=== PATIENT | male | born 1975 | race Caucasian/White ===

== ENCOUNTER 2024-04-19 08:00 | Inpatient (IN) | payer OTHER ==
[2024-05-26 16:42] VITALS: BMI 20.8
[2024-05-31] MEDS ORDERED: LIDOCAINE 1%/EPI 1:100000 (20 ML MULTI DOSE VIAL) ONE (06:57)
[2024-05-31] MEDS ORDERED: MIDAZOLAM HCL 2 MG/2 ML SINGLE DOSE VIAL ONE (07:03)
[2024-05-31] MEDS ORDERED: ROCURONIUM BROMIDE 50 MG/5 ML SYRINGE ONE ×2 (07:03→09:37)
[2024-05-31] MEDS ORDERED: PROPOFOL 20 ML ONE (07:03)
[2024-05-31] MEDS: ceFAZolin SODIUM 1 GM VIAL IVPB ONE ×3 (07:33→10:42)
[2024-05-31] MEDS: LIDOCAINE 1%/EPI 1:100000 (20 ML MULTI DOSE VIAL) IJ ONE ×3 (07:33→10:43)
[2024-05-31] MEDS: VANCOMYCIN 1 GM in D5W (PRE-DOCKED) 1,000 MG/250 ML (RESTRICTED TO ID ONLY IVPB ONE ×2 (07:33→08:24)
[2024-05-31] MEDS ORDERED: HYDROmorphone HCl 2 MG/ML VIAL ONE (08:31)
[2024-05-31] MEDS: THROMBIN (BOVINE) 5,000 UNIT VIAL TP ONE (08:45)
[2024-05-31] MEDS: GENTAMICIN SO4 80 MG/2 ML VIAL IVPB ONE (08:45)
[2024-05-31] MEDS: HYDROGEN PEROXIDE 473 ML PO ONE (08:46)
[2024-05-31] MEDS ORDERED: GLYCOPYRROLATE 0.2 MG/1 ML VIAL ONE (09:05)
[2024-05-31] MEDS ORDERED: VANCOMYCIN 1,000 MG VIAL (RESTRICTED TO ID ONLY) ONE (09:05)
[2024-05-31] MEDS ORDERED: ceFAZolin SODIUM 1 GM VIAL ONE (09:05)
[2024-05-31] MEDS ORDERED: TRANEXAMIC ACID 1000 MG/10 ML VIAL ONE (09:05)
[2024-05-31] MEDS ORDERED: KETOROLAC TROMETHAMINE 30 MG/1 ML VIAL ONE (09:05)
[2024-05-31] MEDS ORDERED: DEXAMETHASONE SOD PHOSPHATE 4 MG/1 ML VIAL ONE (09:05)
[2024-05-31] MEDS ORDERED: NEOSTIGMINE METHYLSULFATE 0.5 MG/1 ML - 10 ML MDV ONE (09:05)
[2024-05-31] MEDS ORDERED: ONDANSETRON 4 MG/2 ML VIAL ONE (09:05)
[2024-05-31] MEDS ORDERED: DEXMEDETOMIDINE HCL 200 MCG/2 ML IVPB ONE (09:16)
[2024-05-31] MEDS ORDERED: THROMBIN (BOVINE) 20,000 UNIT VIAL TP ONE (09:53)
[2024-05-31] MEDS ORDERED: BACITRACIN ZINC 15 GM TUBE TOPICAL OINTMENT ONE ×2 (10:12)
[2024-05-31] MEDS: BUPIVACAINE HCL/PF 0.5% (5MG/ML) 10 ML VIAL IJ ONE (12:30)
[2024-05-31] MEDS: BUPIVACAINE LIPOSOME/PF (EXPAREL) 266 MG/20 ML VIAL NR ONE (12:30)
[2024-05-31] MEDS ORDERED: oxyCODONE HCL 5 MG TABLET PO PRN ×2 (12:55→19:48)
[2024-05-31] MEDS ORDERED: diphenhydrAMINE HCL 25 MG CAPSULE (FP) PO PRN (12:55)
[2024-05-31] MEDS ORDERED: ONDANSETRON 4 MG/2 ML VIAL IVPUSH PRN (12:59)
[2024-05-31] MEDS: ACETAMINOPHEN 1000 MG/100 ML BAG IVPB ONE (13:30)
[2024-05-31] MEDS: LACTATED RINGERS SOLUTION 1,000 ML IV SCH (15:15)
[2024-05-31] MEDS: HEPARIN NA (PORCINE) 5,000 UNITS/ML 1ML VIAL SQ SCH ×2 (16:16→19:13)
[2024-05-31] MEDS: LACTATED RINGERS SOLUTION 1,000 ML/1,000 ML INFUS.BAG IV SCH (16:16)
[2024-05-31] MEDS: DOCUSATE SODIUM 100 MG CAPSULE (FP) PO SCH (16:16)
[2024-05-31] MEDS: CEFAZOLIN 1 GM/D5W 1 GM/50 ML BAG IVPB SCH (19:02)
[2024-05-31] MEDS: CEFAZOLIN 1 GM in DEXTROSE 5%-WATER - 50 ML IVPB SCH (19:12)
[2024-05-31] MEDS: morphine SULFATE 4 MG/ML VIAL IVPUSH PRN (19:59)
[2024-05-31] MEDS: oxyCODONE HCL 5 MG TABLET PO PRN (22:14)
[2024-05-31] MEDS: ONDANSETRON 4 MG/2 ML VIAL IVPUSH PRN (23:13)
[2024-05-31] MEDS: LORazepam 2 MG/ML SDV VIAL IVPUSH ONE (23:25)
[2024-06-01 08:28] LABS: POTASSIUM 4.1 mmol/L (3.5-5.1)
[2024-06-01 08:34] LABS: CALCIUM 8.8 mg/dL (8.5-10.1)
[2024-06-01 08:37] LABS: CREATININE 1.2 mg/dL (0.55-1.3)
[2024-06-01 08:41] LABS: HEMATOCRIT 39.5 % (35.4-49); HEMOGLOBIN 13.1 GM/dL (11.7-16.9); MCH 29.6 pg (25.7-33.7); MCHC 33.1 g/dl (32.0-35.9); MEAN CELL VOLUME 89.6 fl (80-96); PLATELET COUNT 167 10^3/uL (134-434); RBC 4.41 M/mm3 (4.00-5.60); RDW 13.7 % (11.9-15.9); WHITE BLOOD COUNT 10.5 K/mm3 (4.0-10.0)
[2024-06-01] MEDS: FOLIC ACID 1 MG TABLET (FP) PO SCH (09:23)
[2024-06-01] MEDS: ACETAMINOPHEN 500 MG TABLET (FP) PO SCH (21:30)
[2024-06-01] MEDS: ACETAMINOPHEN 1000 MG/100 ML BAG IVPB ONE (22:01)
[2024-06-02 08:35] LABS: HEMATOCRIT 40.4 % (35.4-49); HEMOGLOBIN 13.3 GM/dL (11.7-16.9); MCH 29.5 pg (25.7-33.7); MCHC 32.8 g/dl (32.0-35.9); MEAN CELL VOLUME 89.9 fl (80-96); MEAN PLT VOLUME 11.4 fl (7.5-11.1); PLATELET COUNT 167 10^3/uL (134-434); RBC 4.49 M/mm3 (4.00-5.60); RDW 14.1 % (11.9-15.9); WHITE BLOOD COUNT 10.1 K/mm3 (4.0-10.0)
[2024-06-02 08:53] LABS: POTASSIUM 4.1 mmol/L (3.5-5.1)
[2024-06-02 09:01] LABS: ALBUMIN 3.9 g/dl (3.4-5.0); BLOOD UREA NITROGEN 11.2 mg/dL (7-18)
[2024-06-02 09:02] LABS: BILIRUBIN,TOTAL 1.2 mg/dL (0.2-1); CALCIUM 8.9 mg/dL (8.5-10.1); TOT PROT 7.3 g/dl (6.4-8.2)
[2024-06-02] MEDS ORDERED: oxyCODONE HCL 5 MG TABLET PO PRN (15:22)
[2024-06-02] MEDS: ACETAMINOPHEN 1000 MG/100 ML BAG IVPB SCH (15:58)
[2024-06-02] MEDS: DEXAMETHASONE SOD PHOSPHATE 4 MG/1 ML VIAL IVPUSH SCH (15:58)
[2024-06-02] MEDS: HEPARIN NA (PORCINE) 5,000 UNITS/ML 1ML VIAL SQ SCH (16:00)
[2024-06-02] MEDS: ONDANSETRON 4 MG/2 ML VIAL IVPUSH PRN (16:08)
[2024-06-02] MEDS: diazePAM 2 MG TABLET PO PRN (16:14)
[2024-06-02] MEDS: FAMOTIDINE 20 MG/50 ML IVPB 20 MG/50 ML MG IVPB ONE (16:46)
[2024-06-02] MEDS: FAMOTIDINE 20 MG/50 ML IVPB 20 MG/50 ML MG IVPB SCH (21:18)
[2024-06-02] MEDS: DOCUSATE SODIUM 100 MG CAPSULE (FP) PO SCH (21:19)
[2024-06-03 09:35] LABS: HEMATOCRIT 35.8 % (35.4-49); HEMOGLOBIN 12.1 GM/dL (11.7-16.9); MCH 30.3 pg (25.7-33.7); MCHC 33.9 g/dl (32.0-35.9); MEAN CELL VOLUME 89.3 fl (80-96); MEAN PLT VOLUME 10.7 fl (7.5-11.1); PLATELET COUNT 158 10^3/uL (134-434); RBC 4.01 M/mm3 (4.00-5.60); RDW 13.8 % (11.9-15.9); WHITE BLOOD COUNT 9.2 K/mm3 (4.0-10.0)
[2024-06-03] MEDS: BENZOCAINE/MENTH/CETYLPYRD CL 1 EACH LOZENGE MM PRN (09:41)
[2024-06-03] MEDS ORDERED: FAMOTIDINE 20 MG/50 ML IVPB 20 MG/50 ML MG IVPB ONE (10:00)
[2024-06-03 10:01] LABS: POTASSIUM 4.3 mmol/L (3.5-5.1)
[2024-06-03 10:04] LABS: BLOOD UREA NITROGEN 13.4 mg/dL (7-18)
[2024-06-03] MEDS: oxyCODONE HCL 5 MG TABLET PO PRN (18:37)
[2024-06-04] MEDS: amLODIPine BESYLATE 5 MG TABLET (FP) PO SCH (11:28)
[2024-06-04] MEDS: ACETAMINOPHEN 500 MG TABLET (FP) PO SCH (16:27)
[2024-06-04] MEDS: GABAPENTIN 100 MG CAPSULE PO SCH (16:28)
[2024-06-04] MEDS: FAMOTIDINE 20 MG/2.5 ML ORAL LIQUID PO SCH (21:56)
[2024-06-05] MEDS: VALSARTAN 160 MG TABLET PO SCH (10:13)
[2024-06-05 15:42] VITALS: RESP 18
[2024-06-06 07:18] VITALS: TEMP 98.1
[2024-06-06 14:28] VITALS: BP 138/95; PULSE 85
== END 2024-06-06 15:15 | disposition home health service (06) | DRG 321 ==
LOC: J2C 05-31 05:11 → J8W 05-31 15:48
PROVIDERS: ADMIT Neurological Surgery; ATTEND Family Medicine
PROC: 00NW0ZZ Release Cervical Spinal Cord, Open Approach (ICD-10-PCS; 2024-05-31)
PROC: 0RG2071 Fusion of 2 or more Cervical Vertebral Joints with Autologous Tissue Substitute, Posterior Approach, Posterior Column, Open Approach (ICD-10-PCS; 2024-05-31)
PROC: 4A1004G Monitoring of Central Nervous Electrical Activity, Intraoperative, Open Approach (ICD-10-PCS; 2024-05-31)
PROC: 0RG20A0 Fusion of 2 or more Cervical Vertebral Joints with Interbody Fusion Device, Anterior Approach, Anterior Column, Open Approach (ICD-10-PCS; principal; 2024-05-31 08:00)
PROC: 0RB30ZZ Excision of Cervical Vertebral Disc, Open Approach (ICD-10-PCS; 2024-05-31 08:00)
DX: M47.12 Other spondylosis with myelopathy, cervical region (principal); R13.10 Dysphagia, unspecified; M50.20 Other cervical disc displacement, unspecified cervical region; I10 Essential (primary) hypertension; M40.12 Other secondary kyphosis, cervical region; R51.9 Headache, unspecified
CPT/HCPCS: 36415; 72125-TC; 76000-TC-FY; 80048; 80053; 85027; 86850; 86900; 86901; 93005; 93010; 94760; 97116-GP; 97161-GP; C1713; J0131; J1644